=== PATIENT | female | born 1970 | race Two or more races ===

== ENCOUNTER 2019-01-07 05:20 | Day surgery (SDC) | payer OTHER ==
[~2019-01-07 05:20] MED LIST: COZAAR100 MG PO; NEURONTIN600 MG PO; ULTRACET PO
[2019-01-07] MEDS ORDERED: PERCOCET 5-3251 EACH PO (09:56)
[2019-01-07] MEDS ORDERED: COLACE100 MG PO (09:56)
[2019-01-07] MEDS ORDERED: NEURONTIN300 MG PO (09:56)
[2019-01-07] MEDS ORDERED: ULTRACET PO (11:01)
== END 2019-01-07 14:30 | disposition home or self-care (01) ==
LOC: CIR.AMB 05:20
DX: K64.8 Other hemorrhoids (principal)